=== PATIENT | female | born 1990 | race Caucasian/White ===

== ENCOUNTER 2016-12-08 23:50 | Emergency (ER) | payer SELFPAY ==
[2016-12-09] MEDS ORDERED: Aspirin Low Dose CHEW TAB* 81 MG PO ONE (00:05)
[2016-12-09 00:52] LABS: Hematocrit 44 % (35-47); Hemoglobin 14.5 g/dl (12.0-16.0); Mean Corpuscular HGB Conc 33 g/dl (31-36); Mean Corpuscular Hemoglobin 30 pg (27-31); Mean Corpuscular Volume 90 fL (80-97); Mean Platelet Volume 9 um3 (7.4-10.4); Red Blood Count 4.88 10^6/ul (4.0-5.4); Red Cell Distribution Width 14 % (10.5-15); White Blood Count 11.3 10^3/ul (3.5-10.8)
[2016-12-09 00:55] LABS: ALT 38 U/L (7-52); AST 48 U/L (13-39); Albumin 4.2 g/dL (3.2-5.2); Alkaline Phosphatase 68 U/L (34-104); Anion Gap 9 mmol/L (2-11); BUN/Creatinine Ratio 14.1 (8-20); Blood Urea Nitrogen 10 mg/dL (6-24); CO2 Carbon Dioxide 27 mmol/L (22-32); Calcium 9.8 mg/dL (8.6-10.3); Chloride 100 mmol/L (101-111); EGFR Non-African American 98.7 (>60); Globulin 3.3 g/dL (2-4); Glucose 102 mg/dL (70-100); Potassium 3.6 mmol/L (3.5-5.0); Sodium 136 mmol/L (133-145); Total Protein 7.5 g/dL (6.4-8.9)
--- NOTE | 2016-12-09 02:50 | ED ---
Karen Landers Anna, scribed for Angel Bruner on 12/09/16 at 0024 . Substance Abuse/Use - HPI Summary HPI Summary: Patient is a 26 y/o female BIBA to [facility] presenting after the sudden onset of a heroin overdose that occurred at 2300 this evening. Upon arrival of EMS, patient was apneic. [employer], nasal Narcan administered by EMS, which woke patient. Patient denies SI. She reports that she has been taking heroin for 10 years and has been to multiple rehab centers. She denies CP or other pain. Denies use of cocaine. She experienced LOC as part of the overdose. - History Of Current Complaint Chief Complaint: EDOverdose Stated Complaint: OD Time Seen by Provider: 12/08/16 23:55 Hx Obtained From: Patient, EMS Onset/Duration of Drug/ETOH Abuse: Hours Ingestion History: Type/Name Of Drug - heroin, Amount Ingested - unk Alleviating Factor(s): Medication - Narcan Related Hx: Prior Drug Abuse Counseling/Admission PMH/Surg Hx/FS Hx/Imm Hx EENT History: Denies: Hx Deafness Psychiatric History: Reports: Hx Substance Abuse Denies: Hx Suicide Attempt Infectious Disease History: Yes Infectious Disease History: Denies: Traveled Outside the [place] in Last 30 Days - Family History Known Family History: Negative: Seizure Disorder - Social History Alcohol Use: Occasionally Substance Use Type: Reports: Heroin Substance Use Comment - Amount & Last Used: several times a day Smoking Status (MU): Heavy Every Day Tobacco Smoker Review of Systems Constitutional: Other - heroin overdose Negative: Chest Pain Negative: Arthralgia Positive: Syncope All Other Systems Reviewed And Are Negative: Yes Physical Exam Triage Information Reviewed: Yes Vital Signs On Initial Exam: Initial Vitals Temp Pulse Resp BP Pulse Ox 98.4 F 88 18 123/65 96 12/08/16 23:52 12/08/16 23:52 12/08/16 23:52 12/08/16 23:52 12/08/16 23:52 Vital Signs Reviewed: Yes Appearance: Positive: Well-Appearing, No Pain Distress Skin: Positive: Warm, Skin Color Reflects Adequate Perfusion Head/Face: Positive: Normal Head/Face Inspection Eyes: Positive: EOMI, LUCINDA ENT: Positive: Normal ENT inspection Neck: Positive: Supple, Nontender Respiratory/Lung Sounds: Positive: Clear to Auscultation, Breath Sounds Present Cardiovascular: Positive: RRR Abdomen Description: Positive: Nontender, Soft Bowel Sounds: Positive: Present Musculoskeletal: Positive: Normal, Strength/ROM Intact Neurological: Positive: Normal, Sensory/Motor Intact, Alert, Oriented to Person Place, Time - [place] Coma Scale Coma Scale Total: 15 Diagnostics - Vital Signs Vital Signs Temp Pulse Resp BP Pulse Ox 12/08/16 23:52 98.4 F 88 18 123/65 96 - Laboratory Result Diagrams: 12/09/16 00:20 12/09/16 00:20 Lab Statement: Any lab studies that have been ordered have been reviewed, and results considered in the medical decision making process. - EKG 0042 Cardiac Rate: NL - 92 bpm EKG Rhythm: Sinus Rhythm ST Segment: Normal Ectopy: None EKG Interpretation: No acute changes. Course/Dx - Course Course Of Treatment: This is a 26 y/o male presenting with heronine overdose. Her labs were within normal limits and her troponin was 0.0. - Diagnoses Provider Diagnoses: over dose Discharge - Discharge Plan Condition: Stable Disposition: HOME Discharge Disposition Comment: Please follow up with your primary care privider within 2 days. Referrals: Non Staff,Doctor [Primary Care Provider] - The documentation as recorded by the Karen grimes Anna accurately reflects the service I personally performed and the decisions made by , Angel Bruner.
[2016-12-09 03:06] VITALS: BP 104/68
== END 2016-12-09 03:30 | disposition home or self-care (01) ==
LOC: ED 23:50
DX: T40.1X1A Poisoning by heroin, accidental (unintentional), initial encounter (principal); R55 Syncope and collapse; Y92.9 Unspecified place or not applicable; F17.210 Nicotine dependence, cigarettes, uncomplicated
CPT/HCPCS: 36415; 80053; 84484; 84702; 85025; 93005; 99283